=== PATIENT | female | born 1960 | race Caucasian/White ===

== ENCOUNTER → 2020-06-05 | Outpatient (CLI) | payer MEDICARE ==
[~2020-06-05] MED LIST: APIX5TAB PO; ATOR40TA78 PO; CRAN500C PO; DULA0.75 INJ; FISH1CAP PO; INSU100I13 SC; LISI1TAB19 PO; METF500T17 PO; METO-93 PO; MULT-658 PO
[2020-06-05 11:45] LABS: MEAN CORPUSCULAR HEMOGLOBIN 27.6 pg (27.0-34.8); MEAN CORPUSCULAR HGB CONC 31.9 g/dL (32.4-35.8); MEAN CORPUSCULAR VOLUME 86.7 fL (80-100); MEAN PLATELET VOLUME 7.6 fL (7.4-10.4); PLATELET COUNT 254 x10^3/uL (130-400); RED BLOOD COUNT 4.63 x10^6/uL (3.82-5.3)
[2020-06-05 11:50] LABS: INTERNATIONAL NORMALIZED RATIO 0.97 (0.93-1.1); PROTHROMBIN TIME 10.3 Seconds (9.6-11.5)
[2020-06-05 11:52] LABS: ALBUMIN 3.7 g/dL (3.4-5.0); ANION GAP 8 mmol/L (5-15); CALCIUM 9.5 mg/dL (8.5-10.1); CHLORIDE 103 mmol/L (98-107)
[2020-06-05 11:57] LABS: ALANINE AMINOTRANSFERASE 53 U/L (12-78); ALKALINE PHOSPHATASE 104 U/L (45-117); BILIRUBIN,TOTAL 0.6 mg/dL (0.2-1.0); CREATININE 0.95 mg/dL (0.55-1.02)
[2020-06-05 12:35] LABS: BASOPHILS # (AUTO) 0.05 x10^3/uL (0-0.1); BASOPHILS % (AUTO) 1 % (0-1); EOSINOPHILS # (AUTO) 0.26 x10^3/uL (0-0.4); EOSINOPHILS % (AUTO) 4 % (1-7); LYMPHOCYTES # (AUTO) 2.26 x10^3/uL (1-3.4); LYMPHOCYTES % (AUTO) 35 % (22-44); MD SCAN; MONOCYTES # (AUTO) 0.44 x10^3/uL (0.2-0.8); MONOCYTES % (AUTO) 7 % (2-9); NEUTROPHILS % (AUTO) 54 % (42-75); RED CELL DISTRIBUTION WIDTH 17.6 % (9.6-15.2)
== END | disposition home or self-care (01) ==
LOC: STAR 10:46
PROVIDERS: ATTEND Obstetrics & Gynecology
DX: Z01.818 Encounter for other preprocedural examination (principal); N95.0 Postmenopausal bleeding; C54.1 Malignant neoplasm of endometrium
CPT/HCPCS: 36415; 71046; 80053; 85025; 85610; 85730; 86304; 93005

== ENCOUNTER 2020-06-09 07:33 | Observation (INO) | payer MEDICARE ==
[~2020-06-09] VITALS: Ht 161.3 cm; Wt 160.6 kg
[~2020-06-09 07:33] MED LIST changes: +BUPIVACAINE/PF 0.25% ONE; +EPINEPHRINE 1 MG/ML, 1ML ONE; +HEPARIN 1,000 UNITS/ML, 10ML ONE; +INDOCYANINE GREEN 25 MG VIAL ONE
[2020-06-09] MEDS ORDERED: CEFOTETAN PMX 2GM/50ML 50 ML IV ONE (08:00)
[2020-06-09] MEDS ORDERED: LACTATED RINGERS 1,000 ML IV SCH (08:12)
[2020-06-09] MEDS ORDERED: LIDOCAINE-MPF 1%, 2ML INFIL ONE (08:30)
[2020-06-09] MEDS ORDERED: CHLORHEXIDINE 15 ML UDC MM ONE (08:30)
[2020-06-09] MEDS ORDERED: MIDAZOLAM 1 MG/ML, 2ML ONE (10:21)
[2020-06-09] MEDS ORDERED: FENTANYL PF 250 MCG/5ML ONE (10:21)
[2020-06-09] MEDS ORDERED: INDOCYANINE GREEN 25 MG VIAL INJ ONE (11:35)
[2020-06-09] MEDS ORDERED: BUPIVACAINE/PF-EPI 0.25% 1:200K INFIL ONE (11:35)
[2020-06-09] MEDS ORDERED: HYDROmorphone 2 MG/ML, 1ML IVPush PRN (12:00)
[2020-06-09] MEDS ORDERED: DIAZEPAM 5 MG/ML, 2ML IVPush PRN (12:00)
[2020-06-09] MEDS ORDERED: OXYcodone 5 MG/5 ML ORAL.SOL UDC PO PRN (12:00)
[2020-06-09] MEDS ORDERED: ACETAMINOPHEN 325 MG TABLET PO PRN (12:00)
[2020-06-09] MEDS ORDERED: hydrALAzine 20 MG/ML, 1ML IV PRN ×3 (12:00→16:30)
[2020-06-09] MEDS ORDERED: MEPERIDINE/PF 25MG/0.5ML IVPush PRN (12:00)
[2020-06-09] MEDS ORDERED: PROMETHAZINE 25 MG/ML, 1ML IV PRN (12:00)
[2020-06-09] MEDS ORDERED: LABETALOL 5MG/ML, 20ML IV PRN (12:00)
[2020-06-09] MEDS ORDERED: ALBUTEROL SULFATE 2.5 MG/3 ML NPPB PRN (12:00)
[2020-06-09] MEDS ORDERED: KETOROLAC 30 MG/1 ML IV PRN (12:00)
[2020-06-09] MEDS ORDERED: SUCCINYLCHOLINE 20 MG/ML, 10ML ONE (13:50)
[2020-06-09] MEDS ORDERED: PROPOFOL 10 MG/ML, 20ML ONE (13:50)
[2020-06-09] MEDS ORDERED: NEOSTIGMINE 1 MG/ML, 10ML ONE (13:50)
[2020-06-09] MEDS ORDERED: KETOROLAC 30 MG/1 ML ONE (13:50)
[2020-06-09] MEDS ORDERED: CEFAZOLIN 1,000 MG ONE (13:50)
[2020-06-09] MEDS ORDERED: GLYCOPYRROLATE 0.2MG/1ML, 5ML ONE (13:50)
[2020-06-09] MEDS ORDERED: ONDANSETRON 2MG/ML, 2ML ONE (13:50)
[2020-06-09] MEDS ORDERED: ROCURONIUM 10MG/ML,5ML ONE (13:50)
[2020-06-09] MEDS ORDERED: SUGAMMADEX 200 MG/2 ML IVPush ONE (13:50)
[2020-06-09] MEDS ORDERED: DEXAMETHASONE 4 MG/ML, 1ML ONE (13:50)
[2020-06-09] MEDS ORDERED: ACETAMINOPHEN 325 MG TABLET ONE (14:16)
[2020-06-09] MEDS ORDERED: ACETAMINOPHEN 650 MG/20.3 ML UDC ONE (14:16)
[2020-06-09] MEDS ORDERED: OXYcodone 5 MG/5 ML ORAL.SOL UDC ONE (14:16)
[2020-06-09] MEDS ORDERED: FENTANYL PF 100 MCG/2ML ONE (14:16)
[2020-06-09] MEDS: FENTANYL PF 100 MCG/2ML IV PRN ×2 (14:19→15:50)
[2020-06-09] MEDS ORDERED: ONDA4TAB7 PO (14:29)
[2020-06-09] MEDS ORDERED: HYDR-3652 PO (14:29)
[2020-06-09] MEDS ORDERED: ONDANSETRON 2MG/ML, 2ML IVPush PRN (15:30)
[2020-06-09] MEDS ORDERED: PROCHLORPERAZINE 5 MG/ML, 2ML IVPush PRN (15:30)
[2020-06-09] MEDS ORDERED: morphine SULFATE 10 MG/ML, 1ML IVPush PRN (15:30)
[2020-06-09] MEDS ORDERED: hydrALAzine 20 MG/ML, 1ML ONE (15:57)
[2020-06-09] MEDS ORDERED: KETOROLAC 30 MG/1 ML IM PRN (16:30)
[2020-06-09 16:50] VITALS: BP 154/77
[2020-06-09] MEDS: INSULIN REGULAR 100 UNITS/ML, 3ML VIAL SQ-INSULIN SCH ×2 (18:02→21:58)
[2020-06-09 20:00] VITALS: BP 115/53
[2020-06-09] MEDS: LACTATED RINGERS 1,000 ML IV SCH ×2 (20:00→21:44)
[2020-06-09] MEDS: HYDROcodone/APAP 5/325 TABLET PO PRN (20:52)
[2020-06-09 23:50] VITALS: BP 117/66
[2020-06-10] MEDS: HYDROcodone/APAP 5/325 TABLET PO PRN ×3 (01:56→12:59)
[2020-06-10 03:40] VITALS: BP 103/59
[2020-06-10 05:54] LABS: BASOPHILS # (AUTO) 0.08 x10^3/uL (0-0.1); BASOPHILS % (AUTO) 1 % (0-1); EOSINOPHILS % (AUTO) 0 % (1-7); LYMPHOCYTES # (AUTO) 1.07 x10^3/uL (1-3.4); LYMPHOCYTES % (AUTO) 8 % (22-44); MD NO; MEAN CORPUSCULAR HEMOGLOBIN 28.1 pg (27.0-34.8); MEAN CORPUSCULAR HGB CONC 32.3 g/dL (32.4-35.8); MEAN CORPUSCULAR VOLUME 86.9 fL (80-100); MEAN PLATELET VOLUME 7.9 fL (7.4-10.4); MONOCYTES # (AUTO) 0.69 x10^3/uL (0.2-0.8); MONOCYTES % (AUTO) 5 % (2-9); NEUTROPHILS # (AUTO) 11.06 x10^3/uL (1.8-6.8); NEUTROPHILS % (AUTO) 86 % (42-75); PLATELET COUNT 269 x10^3/uL (130-400); RED CELL DISTRIBUTION WIDTH 17.7 % (9.6-15.2)
[2020-06-10 06:00] LABS: ANION GAP 6 mmol/L (5-15); CALCIUM 8.5 mg/dL (8.5-10.1); CHLORIDE 105 mmol/L (98-107)
[2020-06-10 06:01] LABS: CREATININE 0.93 mg/dL (0.55-1.02)
[2020-06-10 07:45] VITALS: BP 137/65
[2020-06-10] MEDS: INSULIN REGULAR 100 UNITS/ML, 3ML VIAL SQ-INSULIN SCH ×3 (07:55→16:00)
[2020-06-10] MEDS ORDERED: METOPROLOL SUCCINATE 50 MG TAB.ER.24H PO SCH (08:00)
[2020-06-10] MEDS ORDERED: APIXABAN 5 MG TABLET PO SCH (08:00)
[2020-06-10] MEDS ORDERED: LISINOPRIL 20 MG TABLET PO SCH (08:00)
[2020-06-10] MEDS: LACTATED RINGERS 1,000 ML IV SCH (12:00)
[2020-06-10 15:03] VITALS: BP 115/50
== END 2020-06-10 16:11 | disposition home or self-care (01) ==
LOC: OUT 07:33 → ORIP 15:22 → 4NE 16:41 → DCLOUNGE 06-10 16:06
PROVIDERS: ADMIT Obstetrics & Gynecology; ATTEND Obstetrics & Gynecology
DX: C54.1 Malignant neoplasm of endometrium (principal); Z20.828 Contact with and (suspected) exposure to other viral communicable diseases; E66.01 Morbid (severe) obesity due to excess calories; G47.33 Obstructive sleep apnea (adult) (pediatric); I48.91 Unspecified atrial fibrillation; I10 Essential (primary) hypertension; E11.9 Type 2 diabetes mellitus without complications; E78.5 Hyperlipidemia, unspecified; M06.9 Rheumatoid arthritis, unspecified; I73.9 Peripheral vascular disease, unspecified; J45.909 Unspecified asthma, uncomplicated; Z68.43 Body mass index [BMI] 50.0-59.9, adult; Z79.899 Other long term (current) drug therapy; Z87.891 Personal history of nicotine dependence
CPT/HCPCS: 36415; 38500; 58552; 74018; 80048; 82962; 85025; 86850; 86900; 86923; 87635; 88112; 88305; 88307; 88341; 88342; G0378; J0171; J0360; J0690; J1100; J1644; J1815; J1885; J2250; J2405; J2704; J3010; J3490; J7120; J2710; J0330